=== PATIENT | male | born 1955 | race Hispanic/Latino ===

== ENCOUNTER 2017-03-09 10:12 | Day surgery (SDC) | payer OTHER ==
[~2017-03-09] VITALS: Ht 182.9 cm; Wt 77.1 kg
[~2017-03-09 10:12] MED LIST: CARAFATE PO; DESIPRAMINE PO; LATANOPROST0.005 % OP; NAPROSYN500 MG PO; NASONEX50 MCG/ACT IN; OMEPRAZOLE20 M2 PO; PANTOPRAZOLE SO40 MG PO
[2017-03-09 12:08] VITALS: BP 129/72
== END 2017-03-09 12:24 | disposition home or self-care (01) | DRG 641 ==
LOC: ENDO 10:12 → ORM 11:45 → ENDO 11:45 → ORM 12:45 → ENDO 15:00
PROVIDERS: ATTEND Internal Medicine Gastroenterology
PROC: 0DJD8ZZ Inspection of Lower Intestinal Tract, Via Natural or Artificial Opening Endoscopic (ICD-10-PCS; principal; 2017-03-09)
DX: R63.4 Abnormal weight loss (principal); K31.7 Polyp of stomach and duodenum; K57.30 Diverticulosis of large intestine without perforation or abscess without bleeding; K64.8 Other hemorrhoids; K64.4 Residual hemorrhoidal skin tags; K21.9 Gastro-esophageal reflux disease without esophagitis; K29.70 Gastritis, unspecified, without bleeding; K44.9 Diaphragmatic hernia without obstruction or gangrene; Z86.010 Personal history of colon polyps

== ENCOUNTER 2022-12-11 09:46 | Day surgery (SDC) | payer OTHER, MEDICARE ==
[~2022-12-11] VITALS: Ht 182.9 cm; Wt 83.9 kg
[2022-12-11 12:02] VITALS: BP 139/88
== END 2022-12-11 12:19 | disposition home or self-care (01) | DRG 951 ==
LOC: ENDO 09:46 → ORM 11:30 → ENDO 12:19 → ORM 12:35
PROVIDERS: ATTEND Internal Medicine Gastroenterology
PROC: 0DBH8ZX Excision of Cecum, Via Natural or Artificial Opening Endoscopic, Diagnostic (ICD-10-PCS; principal; 2022-12-11)
DX: Z12.11 Encounter for screening for malignant neoplasm of colon (principal); D12.0 Benign neoplasm of cecum; K64.8 Other hemorrhoids; K57.30 Diverticulosis of large intestine without perforation or abscess without bleeding; Z86.010 Personal history of colon polyps